=== PATIENT | male | born 1940 | race Caucasian/White ===

== ENCOUNTER 2024-01-28 14:25 | Inpatient (IN) | payer MEDICARE ==
[2024-01-28 14:44] VITALS: BMI 29.6
[2024-01-28] MEDS ORDERED: Ondansetron ODT 4 MG TAB PO PRN (17:07)
[2024-01-28] MEDS ORDERED: oxyCODONE 5 MG TAB PO PRN (17:08)
[2024-01-28] MEDS: HYDROcodone/Acetaminophen 10/325 mg Tablet PO PRN (17:46)
[2024-01-28] MEDS ORDERED: Glucagon 1 MG/ML KIT IM PRN (19:45)
[2024-01-28] MEDS ORDERED: Dextrose 5% in Water 1,000 ML IV PRN (19:45)
[2024-01-28] MEDS ORDERED: Dextrose 50% Abboject 50 ML SYRINGE SLOW IVP PRN (19:45)
[2024-01-28] MEDS: Mometasone/Formoterol 60 PUFF AER INH SCH (20:33)
[2024-01-28] MEDS: Aspirin 81 mg Enteric Coated Tablet PO SCH (20:34)
[2024-01-28] MEDS: Cyclobenzaprine 10 MG TAB PO SCH (20:34)
[2024-01-28] MEDS: Atorvastatin Calcium 10 MG TAB PO SCH (20:34)
[2024-01-28] MEDS: Cephalexin 500 MG CAP PO SCH (20:34)
[2024-01-28] MEDS: HumaLOG 300 UNITS/3 ML VIAL SC PRN (20:34)
[2024-01-28] MEDS ORDERED: CEFADROXIL 500 MG PO SCH (21:00)
[2024-01-29] MEDS: Ferrous Sulfate 325 MG TAB PO SCH (08:21)
[2024-01-29] MEDS: Amlodipine 5 MG TAB PO SCH (08:21)
[2024-01-29] MEDS: DULoxetine 30 MG CAP PO SCH (08:21)
[2024-01-29] MEDS: Pantoprazole DR 40 MG TAB PO SCH (08:22)
[2024-01-30] MEDS: traMADol HCl 50 MG TAB PO PRN (01:27)
[2024-01-30 05:37] LABS: Hematocrit 37.4 % (42.0-52.0); Hemoglobin 11.7 g/dL (14.0-18.0); Mean Corpuscular HGB CONC 31.4 g/dL (32.0-36.0); Mean Corpuscular Hemoglobin 28.2 pg (27.0-31.0); Mean Corpuscular Volume 89.9 fl (78.0-98.0); Mean Platelet Volume 6.2 fL (7.4-10.4); Platelet Count 206 10x3/uL (130-400); RBC Distribution Width 12.1 % (11.5-14.5); Red Blood Cell (RBC) Count 4.16 mill/uL (4.70-6.10); White Blood Cell (WBC) Count 9.3 10x3/uL (4.8-10.8)
[2024-01-30 05:46] LABS: Band 1 % (5-11); Eosinophils 4 % (0-10); Lymphocytes 16 % (21-51); MDiff Complete? YES; Monocytes 10 % (0-10); Neutrophil 69 % (42-75)
[2024-01-30 05:52] LABS: ALT (SGPT) 14 U/L (8-55); AST (SGOT) 23 U/L (5-34); Albumin 3.3 g/dL (3.4-4.8); Alkaline Phosphatase 93 U/L (40-110); Anion Gap 15 mmol/L (10-20); BUN (Urea Nitrogen) 27 mg/dL (8.4-25.7); Calc. Creatinine Clearance 41 mL/min (70-130); Calcium 9.1 mg/dL (7.8-10.44); Carbon Dioxide 23 mmol/L (23-31); Chloride 103 mmol/L (98-107); Estimated GFR 38; Globulin 3.6 g/dL (2.4-3.5); Glucose 178 mg/dL (83-110); Potassium 4.9 mmol/L (3.5-5.1); Protein, Total 6.9 g/dL (5.8-8.1); Sodium 136 mmol/L (136-145)
[2024-01-30 08:09] VITALS: BMI 29.6
[2024-01-30] MEDS: Calcium Carbonate 600 MG + Vit D TAB PO SCH (08:12)
[2024-01-30] MEDS: HYDROcodone/Acetaminophen 10/325 mg Tablet PO SCH (13:09)
[2024-01-30] MEDS: Triple Antibiotic Oint 1 GM Packet TOP SCH ×2 (15:32→15:33)
[2024-01-30] MEDS: HYDROcodone/Acetaminophen 10/325 mg Tablet PO PRN (17:11)
[2024-01-31] MEDS: Docusate 100 MG CAP PO SCH (12:16)
[2024-01-31] MEDS: Albuterol 200 PUFF (6.7GM INHALER) INH PRN (16:09)
[2024-01-31] MEDS: Bisacodyl 5 MG TAB PO PRN (20:57)
[2024-02-01] MEDS: Polyethylene Glycol 3350 17 GM Packet PO SCH (08:11)
[2024-02-02] MEDS ORDERED: Bisacodyl 10 MG SUPP PR PRN (09:06)
[2024-02-03] MEDS ORDERED: oxyCODONE 5 MG TAB PO PRN (13:17)
[2024-02-03] MEDS: Pregabalin 50 MG CAP PO SCH (14:21)
[2024-02-03] MEDS: oxyCODONE 5 MG TAB PO PRN (16:52)
[2024-02-03] MEDS: Senokot S 8.6-50 MG TAB PO SCH (23:09)
[2024-02-04 05:30] LABS: Anion Gap 15 mmol/L (10-20); BUN (Urea Nitrogen) 36 mg/dL (8.4-25.7); Calc. Creatinine Clearance 35 mL/min (70-130); Calcium 8.7 mg/dL (7.8-10.44); Carbon Dioxide 22 mmol/L (23-31); Chloride 107 mmol/L (98-107); Estimated GFR 32; Glucose 201 mg/dL (83-110); Potassium 4.7 mmol/L (3.5-5.1); Sodium 139 mmol/L (136-145)
[2024-02-07] MEDS: Acetaminophen 325 MG TAB PO PRN (08:45)
[2024-02-07 18:09] VITALS: BP 129/66; TEMP 98.7
== END 2024-02-07 17:59 | disposition home health service (06) | DRG 948 ==
LOC: MADMS 14:25
PROVIDERS: ADMIT Family Medicine; ATTEND Family Medicine
DX: R53.81 Other malaise (principal); D62 Acute posthemorrhagic anemia; Z96.642 Presence of left artificial hip joint; I12.9 Hypertensive chronic kidney disease with stage 1 through stage 4 chronic kidney disease, or unspecified chronic kidney disease; N18.30 Chronic kidney disease, stage 3 unspecified; E11.22 Type 2 diabetes mellitus with diabetic chronic kidney disease; M16.12 Unilateral primary osteoarthritis, left hip; G47.33 Obstructive sleep apnea (adult) (pediatric); N40.0 Benign prostatic hyperplasia without lower urinary tract symptoms; E78.5 Hyperlipidemia, unspecified; G89.29 Other chronic pain; Z88.8 Allergy status to other drugs, medicaments and biological substances; Z91.013 Allergy to seafood; Z79.82 Long term (current) use of aspirin; Z79.899 Other long term (current) drug therapy; Z79.51 Long term (current) use of inhaled steroids; Z90.49 Acquired absence of other specified parts of digestive tract; Z87.891 Personal history of nicotine dependence; Z79.891 Long term (current) use of opiate analgesic
CPT/HCPCS: 36415; 36416; 80048; 80053; 85025; 94664; J1815